=== PATIENT | female | born 1960 | race Caucasian/White ===

== ENCOUNTER 2024-03-29 14:13 | Outpatient (CLI) | payer MEDICARE | END 2024-03-29 14:14 | disposition home or self-care (01) | LOC: CSHMRI 14:13 | PROVIDERS: ATTEND Orthopaedic Surgery | DX: M23.304 Other meniscus derangements, unspecified medial meniscus, left knee (principal); S83.242A Other tear of medial meniscus, current injury, left knee, initial encounter; M23.301 Other meniscus derangements, unspecified lateral meniscus, left knee; M23.8X2 Other internal derangements of left knee; R93.6 Abnormal findings on diagnostic imaging of limbs; M25.862 Other specified joint disorders, left knee; M71.22 Synovial cyst of popliteal space [Baker], left knee ==